=== PATIENT | male | born 2000 | race African-American/Black ===

== ENCOUNTER 2024-06-15 05:49 | Emergency (ER) | payer MEDICAID ==
[~2024-06-15] VITALS: Ht 182.9 cm; Wt 89.0 kg
[2024-06-15] MEDS: MIDAZOLAM HCL 2 MG/2 ML VIAL IM ONE ×3 (06:40→12:04)
[2024-06-15] MEDS: HALOPERIDOL LACTATE 5MG/ML VIAL IM ONE ×3 (06:40→12:03)
[2024-06-15 12:10] LABS: HEMATOCRIT. 43.8 % (42.0-52.0); HEMOGLOBIN. 14.4 g/dL (14.0-18.0); MEAN CORPUSCULAR HEMOGLOBIN 26.7 pg (28.0-32.0); MEAN CORPUSCULAR VOLUME 80.9 fL (80.0-94.0); MEAN PLATELET VOLUME 8.6 fl (7.4-10.4); PLATELET 215 x1000/uL (130-400); RED BLOOD CELL COUNT 5.41 mill/uL (4.7-6.1); RED CELL DISTRIBUTION WIDTH 13.8 % (11.6-14.6); WHITE BLOOD COUNT 6.9 x1000/uL (4.5-11.0)
[2024-06-15 12:11] LABS: DIFFERENTIAL COMMENT 1
[2024-06-15 12:19] LABS: CHLORIDE 107 mEq/L (98-107); POTASSIUM 3.9 mEq/L (3.5-5.1); SODIUM 139 mEq/L (136-145)
[2024-06-15 12:20] LABS: CALCIUM 9.7 mg/dL (8.7-10.4); CARBON DIOXIDE 25 mEq/L (21-32)
[2024-06-15 12:25] LABS: CREATININE 0.8 mg/dL (0.6-1.3); GLUCOSE 81 mg/dL (70-105); UREA NITROGEN BLOOD 9 mg/dL (9-23)
[2024-06-15 12:27] LABS: ACETAMINOPHEN < 2 ug/mL (10-30)
[2024-06-15 12:42] LABS: PLATELET ESTIMATE NORMAL
[2024-06-15 12:53] LABS: ETHANOL BLOOD < 10 mg/dL (<10)
[2024-06-15 17:00] VITALS: O2SAT 100
[2024-06-15] MEDS: LORAZEPAM 1MG TABLET PO ONE (17:29)
[2024-06-16 03:47] LABS: CLARITY URINE CLEAR (CLEAR); COLOR URINE DARK YELLOW (YELLOW); GLUCOSE URINE NEGATIVE (NEGATIVE); KETONES URINE 1+ (NEGATIVE); LEUKOCYTE ESTERASE URINE NEGATIVE (NEGATIVE); NITRITE URINE NEGATIVE (NEGATIVE); OCCULT BLOOD URINE NEGATIVE (NEGATIVE); PROTEIN URINE TRACE (NEGATIVE); SPECIFIC GRAVITY URINE 1.025 (1.005-1.030)
[2024-06-16 03:57] LABS: *AMPHETAMINES SCREEN URINE PRESUMPTIVE POSITIVE (NEGATIVE); *BARBITURATES SCREEN URINE NEGATIVE (NEGATIVE); *BENZODIAZEPINES SCREEN URINE PRESUMPTIVE POSITIVE (NEGATIVE); *COCAINE SCREEN URINE NEGATIVE (NEGATIVE); CANNABINOID URINE SCREEN PRESUMPTIVE POSITIVE (NEGATIVE); ECSTASY MDMA SCREEN URINE CONF.TEST INDICATED (NEGATIVE); METHADONE URINE SCREEN NEGATIVE (NEGATIVE); OPIATES URINE SCREEN NEGATIVE (NEGATIVE); PHENCYCLIDINE URINE SCREEN NEGATIVE (NEGATIVE)
[2024-06-16 05:01] LABS: BACTERIA URINE NONE SEEN; RBC URINE NONE SEEN /hpf (0-2); SQUAMOUS EPITHELIAL CELL URINE NONE SEEN /lpf (RARE/1+); WBC URINE 0-2 /hpf (0-2)
[2024-06-16] MEDS: RISPERIDONE 1MG TABLET PO SCH (12:29)
[2024-06-17 14:00] VITALS: BP 128/84; PULSE 90; RESP 20; TEMP 37.00296; O2SAT 98
== END 2024-06-17 14:18 ==
LOC: ER 05:49 → EDBD 05:49 → ER 06-17 14:18
DX: R45.1 Restlessness and agitation (principal); R44.0 Auditory hallucinations; R45.6 Violent behavior; F31.9 Bipolar disorder, unspecified; Z20.822 Contact with and (suspected) exposure to COVID-19
CPT/HCPCS: 80305; 80048; 81003; 80307; 80329; 80320; 85025; 36415; 96372; 99291; 87426; J1630; J2250; Z7610 ×2; G0480